=== PATIENT | female | born 1965 | race Caucasian/White ===

== ENCOUNTER → 2021-03-22 | Outpatient (CLI) | payer OTHER ==
[2021-03-23 08:14] LABS: RHEUMATOID ARTHRITIS FACTOR <10.0 IU/mL (0.0-13.9)
[2021-03-24 01:12] LABS: CCP ANTIBODIES IGG/IGA 10 units (0-19)
== END ==
LOC: LAB 12:20
PROVIDERS: Nurse Practitioner Family
DX: M25.552 Pain in left hip (principal); M25.551 Pain in right hip; D89.9 Disorder involving the immune mechanism, unspecified; M25.50 Pain in unspecified joint; R76.8 Other specified abnormal immunological findings in serum; R53.83 Other fatigue; M79.10 Myalgia, unspecified site; M16.0 Bilateral primary osteoarthritis of hip
CPT/HCPCS: 36415; 73522; 82550; 82728; 83520; 85652; 86140; 86200; 86431